=== PATIENT | male | born 1980 | race Caucasian/White ===

== ENCOUNTER 2020-10-31 15:07 | Emergency (ER) | payer MEDICAID, OTHER ==
[~2020-10-31] VITALS: Ht 182.9 cm; Wt 109.1 kg
[2020-10-31 15:16] VITALS: BP 141/66
[2020-10-31 15:44] LABS: CLARITY,URINE CLEAR (Clear); COLOR,URINE YELLOW (Yellow); GLUCOSE, URINE NEGATIVE (Neg); KETONES,URINE NEGATIVE (Neg); LEUKOCYTE ESTERASE ,URINE NEGATIVE (Neg); NITRITES, URINE NEGATIVE (Neg); OCCULT BLOOD,URINE NEGATIVE (Neg); PH,URINE 6.5 (4.8-8.0); PROTEIN,URINE NEGATIVE (Neg); UROBILINOGEN,URINE 0.2 E.U/dL (0.2-1.0)
[2020-10-31 15:46] LABS: UA COLLECTION TYPE CLN CATCH MIDSTREAM
[2020-10-31] MEDS ORDERED: CYCL-1 PO (16:39)
[2020-10-31] MEDS ORDERED: METH4TAB81 PO (16:39)
[2020-10-31] MEDS ORDERED: ketorolac trometh. 30mg/ml inj. IM ONE (16:40)
== END 2020-10-31 17:40 | disposition home or self-care (01) ==
LOC: ER 15:10
DX: M54.5 Low back pain (principal); Z79.899 Other long term (current) drug therapy
CPT/HCPCS: 81003; 96372; 99283; J1885